=== PATIENT | female | born 1955 ===

== ENCOUNTER 2021-07-19 10:00 | Inpatient (IN) | payer OTHER ==
[~2021-07-19] VITALS: Ht 162.6 cm; Wt 70.8 kg
[2021-07-19] MEDS ORDERED: LEVOTHYROXINE50 MC1 PO (12:33)
[2021-07-19] MEDS ORDERED: LOSART PO (12:34)
[2021-07-19] MEDS ORDERED: FORTAMET500 MG PO (12:34)
[2021-07-19] MEDS ORDERED: ATORVASTA PO (12:35)
[2021-07-19] MEDS ORDERED: ANASTRAZOLE PO (12:35)
[2021-07-19] MEDS ORDERED: GLIMEPIRIDE2 M1 PO (12:37)
[2021-07-24] MEDS ORDERED: ATORVASTATIN CA40 MG (08:05)
[2021-07-24] MEDS ORDERED: EZETIMIBE10 MG (08:05)
[2021-07-24] MEDS ORDERED: ANASTROZOLE1 MG (08:05)
[2021-07-24] MEDS ORDERED: LOSARTAN POTAS100 MG (08:06)
== END 2021-07-27 21:27 | disposition home or self-care (01) | DRG 330 ==
LOC: O/R 07-24 05:50 → SURH 07-24 05:50
PROVIDERS: ADMIT Colon & Rectal Surgery; ATTEND Colon & Rectal Surgery
PROC: 07TC4ZZ Resection of Pelvis Lymphatic, Percutaneous Endoscopic Approach (ICD-10-PCS; 2021-07-24)
PROC: 3E0F7SF Introduction of Other Gas into Respiratory Tract, Via Natural or Artificial Opening (ICD-10-PCS; 2021-07-24)
PROC: 0DTF4ZZ Resection of Right Large Intestine, Percutaneous Endoscopic Approach (ICD-10-PCS; principal; 2021-07-24 07:00)
DX: C18.4 Malignant neoplasm of transverse colon (principal); C18.2 Malignant neoplasm of ascending colon; Z20.822 Contact with and (suspected) exposure to COVID-19

== ENCOUNTER 2023-02-22 18:49 | Emergency (ER) | payer OTHER ==
[~2023-02-22] VITALS: Ht 162.6 cm; Wt 68.0 kg
[~2023-02-22 18:49] MED LIST: ANASTRAZOLE PO; ANASTROZOLE1 MG; ATORVASTA PO; ATORVASTATIN CA40 MG; EZETIMIBE10 MG; FORTAMET500 MG PO; GLIMEPIRIDE2 M1 PO; LEVOTHYROXINE50 MC1 PO; LOSART PO; LOSARTAN POTAS100 MG
[2023-02-23] MEDS ORDERED: BACTRIM DS TAB1 EACH PO (01:20)
== END 2023-02-23 01:30 | disposition home or self-care (01) ==
LOC: ER 18:49
DX: N39.0 Urinary tract infection, site not specified (principal); E11.9 Type 2 diabetes mellitus without complications; Z79.84 Long term (current) use of oral hypoglycemic drugs; I10 Essential (primary) hypertension; Z85.3 Personal history of malignant neoplasm of breast; Z85.038 Personal history of other malignant neoplasm of large intestine; E03.9 Hypothyroidism, unspecified; N20.0 Calculus of kidney; D35.01 Benign neoplasm of right adrenal gland